=== PATIENT | male | born 1990 | race Two or more races ===

== ENCOUNTER 2023-03-09 22:13 | Inpatient (IN) | payer BC ==
[2023-03-10 00:43] VITALS: BMI 22.5
[2023-03-10] MEDS ORDERED: ACETAMINOPHEN 325 MG TABLET (FP) PO PRN (08:37)
[2023-03-10] MEDS ORDERED: POLYETHYLENE GLYCOL (HEALTHYLAX) 3350 17 GM PACKET PO PRN (08:37)
[2023-03-10] MEDS ORDERED: BENZOCAINE/MENTHOL (CHLORASEPTIC ) LOZENGE MM PRN (08:37)
[2023-03-10] MEDS ORDERED: IBUPROFEN 600 MG TABLET (FP) PO PRN (08:37)
[2023-03-10] MEDS ORDERED: MAG HYDROX/AL HYDROX/SIMETH 30 ML UNIT-DOSE CUP PO PRN (08:37)
[2023-03-10] MEDS ORDERED: LOPERAMIDE HCL 2 MG CAPSULE PO PRN (08:37)
[2023-03-10] MEDS ORDERED: ONDANSETRON *ODT* 4 MG TABLET SL PRN (08:37)
[2023-03-10] MEDS ORDERED: BENZONATATE 200 MG CAPSULE PO PRN (08:37)
[2023-03-10] MEDS ORDERED: BISMUTH SUBSALICYLATE 262 MG/15 ML BTL PO PRN (08:37)
[2023-03-10] MEDS ORDERED: IBUPROFEN 400 MG TABLET (FP) PO PRN (08:37)
[2023-03-10] MEDS ORDERED: METHOCARBAMOL 500 MG TABLET PO PRN (08:37)
[2023-03-10] MEDS ORDERED: DICYCLOMINE HCL 10 MG CAPSULE PO PRN (08:37)
[2023-03-10] MEDS ORDERED: MAGNESIUM HYDROX 2400MG/30ML ORAL SUSPENSION 30 ML CUP PO PRN (08:37)
[2023-03-10] MEDS ORDERED: guaiFENesin 600 MG TABLET.ER (FP) PO PRN (08:37)
[2023-03-10] MEDS: PRENATAL VITAMINS W/ FOLIC ACID TABLET (FP) PO SCH (10:23)
[2023-03-10 13:26] LABS: HEMATOCRIT 42.1 % (35.4-49); HEMOGLOBIN 13.7 GM/dL (11.7-16.9); MCH 22.5 pg (25.7-33.7); MCHC 32.4 g/dl (32.0-35.9); MEAN CELL VOLUME 69.4 fl (80-96); MEAN PLT VOLUME 8.4 fl (7.5-11.1); PLATELET COUNT 281 10^3/uL (134-434); RBC 6.07 M/mm3 (4.00-5.60); RDW 15.5 % (11.9-15.9); WHITE BLOOD COUNT 7.3 K/mm3 (4.0-10.0)
[2023-03-10 13:32] LABS: ALBUMIN 3.2 g/dl (3.4-5.0); BLOOD UREA NITROGEN 10.3 mg/dL (7-18); CALCIUM 8.7 mg/dL (8.5-10.1)
[2023-03-10 13:35] LABS: CREATININE 0.9 mg/dL (0.55-1.3)
[2023-03-10 13:37] LABS: TOT PROT 7.9 g/dl (6.4-8.2)
[2023-03-10 13:39] LABS: BILIRUBIN,TOTAL 0.7 mg/dL (0.2-1)
[2023-03-10] MEDS: BICTEGRAV/EMTRICIT/TENOFOV (BIKTARVY) 50-200-25 MG TABLET PO SCH (19:35)
[2023-03-10] MEDS: MELATONIN 5 MG TABLETS PO SCH (22:23)
[2023-03-10] MEDS: THIAMINE HCL 100 MG TABLET (FP) PO SCH (22:23)
[2023-03-10] MEDS: QUEtiapine FUMARATE 100 MG TABLET (FP) PO SCH (22:23)
[2023-03-11] MEDS ORDERED: chlordiazePOXIDE HCL 25 MG CAPSULE PO PRN (09:45)
[2023-03-11] MEDS: PRENATAL VITAMINS W/ FOLIC ACID TABLET (FP) PO SCH (10:29)
[2023-03-11] MEDS: BICTEGRAV/EMTRICIT/TENOFOV (BIKTARVY) 50-200-25 MG TABLET PO SCH (10:29)
[2023-03-11] MEDS: chlordiazePOXIDE HCL 25 MG CAPSULE PO SCH ×3 (10:29→22:28)
[2023-03-11] MEDS ORDERED: NICOTINE POLACRILEX 2 MG GUM BUC PRN (11:28)
[2023-03-11] MEDS: QUEtiapine FUMARATE 100 MG TABLET (FP) PO SCH (22:28)
[2023-03-11] MEDS: MELATONIN 5 MG TABLETS PO SCH (22:28)
[2023-03-11] MEDS: THIAMINE HCL 100 MG TABLET (FP) PO SCH (22:28)
[2023-03-11] MEDS: hydrOXYzine PAMOATE 25 MG CAPSULE (FP) PO PRN (22:29)
[2023-03-12] MEDS: chlordiazePOXIDE HCL 25 MG CAPSULE PO SCH ×4 (06:11→22:39)
[2023-03-12] MEDS: BICTEGRAV/EMTRICIT/TENOFOV (BIKTARVY) 50-200-25 MG TABLET PO SCH (10:54)
[2023-03-12] MEDS: PRENATAL VITAMINS W/ FOLIC ACID TABLET (FP) PO SCH (10:54)
[2023-03-12] MEDS: hydrOXYzine PAMOATE 25 MG CAPSULE (FP) PO PRN ×2 (10:57→22:40)
[2023-03-12] MEDS: THIAMINE HCL 100 MG TABLET (FP) PO SCH (22:38)
[2023-03-12] MEDS: QUEtiapine FUMARATE 200 MG TABLET PO SCH (22:38)
[2023-03-12] MEDS: MELATONIN 5 MG TABLETS PO SCH (22:38)
[2023-03-13] MEDS: chlordiazePOXIDE HCL 25 MG CAPSULE PO SCH ×4 (05:57→22:09)
[2023-03-13] MEDS: PRENATAL VITAMINS W/ FOLIC ACID TABLET (FP) PO SCH (10:36)
[2023-03-13] MEDS: BICTEGRAV/EMTRICIT/TENOFOV (BIKTARVY) 50-200-25 MG TABLET PO SCH (10:36)
[2023-03-13] MEDS: QUEtiapine FUMARATE 200 MG TABLET PO SCH (22:06)
[2023-03-13] MEDS: THIAMINE HCL 100 MG TABLET (FP) PO SCH (22:06)
[2023-03-13] MEDS: MELATONIN 5 MG TABLETS PO SCH (22:06)
[2023-03-13] MEDS: hydrOXYzine PAMOATE 25 MG CAPSULE (FP) PO PRN (22:07)
[2023-03-14] MEDS ORDERED: chlordiazePOXIDE HCL 10 MG CAPSULE PO PRN
[2023-03-14] MEDS: chlordiazePOXIDE HCL 10 MG CAPSULE PO SCH ×3 (05:50→17:27)
[2023-03-14] MEDS: BICTEGRAV/EMTRICIT/TENOFOV (BIKTARVY) 50-200-25 MG TABLET PO SCH (10:26)
[2023-03-14] MEDS: PRENATAL VITAMINS W/ FOLIC ACID TABLET (FP) PO SCH (10:26)
[2023-03-14] MEDS: hydrOXYzine PAMOATE 25 MG CAPSULE (FP) PO PRN (10:27)
[2023-03-14] MEDS ORDERED: hydrOXYzine PAMOATE 25 MG CAPSULE (FP) PO PRN (11:38)
[2023-03-14 13:59] VITALS: TEMP 97.7
[2023-03-14 17:10] VITALS: BP 127/81; PULSE 108; RESP 18
[2023-03-15] MEDS ORDERED: chlordiazePOXIDE HCL 10 MG CAPSULE PO SCH (05:00)
[2023-03-16] MEDS ORDERED: chlordiazePOXIDE HCL 10 MG CAPSULE PO ONE (05:00)
== END 2023-03-14 20:03 | disposition left against medical advice (07) | DRG 894 ==
LOC: YASAS 22:13 → Y3N 03-10 09:53
PROVIDERS: ADMIT Allergy & Immunology; ATTEND Surgery
PROC: HZ2ZZZZ Detoxification Services for Substance Abuse Treatment (ICD-10-PCS; principal; 2023-03-10)
DX: F10.230 Alcohol dependence with withdrawal, uncomplicated (principal); F12.20 Cannabis dependence, uncomplicated; F25.9 Schizoaffective disorder, unspecified; Z21 Asymptomatic human immunodeficiency virus [HIV] infection status; G47.00 Insomnia, unspecified
CPT/HCPCS: 36415; 80053; 85027; 86780; 87811; 93005; 93010; C9803-CS; U0003; U0005